=== PATIENT | male | born 1940 | race Caucasian/White ===

== ENCOUNTER 2020-08-19 22:21 | Inpatient (IN) | payer MEDICARE ==
[~2020-08-19] VITALS: Ht 182.9 cm; Wt 100.4 kg
[~2020-08-19 22:21] MED LIST: AVAP300T; HYDROCODONE/ACETAMIN; KEFL500C; MOBIC; PERC5TAB8; SIMV20TA2
[2020-08-20] MEDS ORDERED: ONDANSETRON 4MG/2ML VIAL IV ONE (00:15)
[2020-08-20] MEDS: MORPHINE 4 MG/ML 1ML VIAL/SYRINGE (J2270) IV PRN ×2 (00:18→00:53)
[2020-08-20 00:28] LABS: BASO % 0.4 % (0.0-1.0); EOS # 0.1 10^3/uL (0.0-0.5); HEMATOCRIT 39.5 % (42.0-52.0); HEMOGLOBIN 12.3 g/dl (13.5-17.5); LYMPH # 1.9 10^3/uL (1.5-5.0); LYMPH % 26.6 % (24.0-44.0); MEAN CORPUSCULAR HEMOGLOBIN 27.2 pg (27.0-33.0); MEAN CORPUSCULAR HGB CONC 31.1 g/dl (32.0-36.5); MEAN CORPUSCULAR VOLUME 87.2 fl (80.0-96.0); MONO # 0.7 10^3/uL (0.0-0.8); NEUTROPHILS # 4.3 10^3/uL (1.5-8.5); NEUTROPHILS % 61.9 % (36.0-66.0); PLATELET COUNT, AUTOMATED 170 10^3/uL (150-450); RED BLOOD COUNT 4.53 10^6/uL (4.30-6.10)
[2020-08-20 00:32] LABS: INR 1.89; PARTIAL THROMBOPLASTIN TIME 38.8 SECONDS (24.2-38.5); PROTHROMBIN TIME 22.1 SECONDS (12.5-14.3)
[2020-08-20 00:41] LABS: BLOOD UREA NITROGEN 27 MG/DL (7-18); CALCIUM LEVEL 9.1 MG/DL (8.8-10.2); CARBON DIOXIDE LEVEL 24 MEQ/L (21-32); CHLORIDE LEVEL 106 MEQ/L (98-107); CREATININE FOR GFR 1.08 MG/DL (0.70-1.30); GLOMERULAR FILTRATION RATE > 60.0 (>42); GLUCOSE, FASTING 106 MG/DL (70-100); POTASSIUM SERUM 4.4 MEQ/L (3.5-5.1); SODIUM LEVEL 140 MEQ/L (136-145)
[2020-08-20] MEDS ORDERED: SIMV20TA22 PO (00:50)
[2020-08-20] MEDS ORDERED: RAMI1CAP26 PO (00:50)
[2020-08-20] MEDS ORDERED: LEUP3.75 IM (00:50)
[2020-08-20] MEDS ORDERED: MAGN250T7 PO (00:50)
[2020-08-20] MEDS ORDERED: FISH1000 PO (00:50)
[2020-08-20] MEDS ORDERED: WARF-20 PO ×3 (00:50→07:26)
[2020-08-20] MEDS ORDERED: WARF4TAB51 PO (00:50)
[2020-08-20] MEDS ORDERED: LEVO100T5 PO (00:50)
[2020-08-20] MEDS ORDERED: METO1TAB87 PO (00:50)
[2020-08-20] MEDS ORDERED: MORPHINE 4 MG/ML 1ML VIAL/SYRINGE (J2270) IV PRN (04:15)
[2020-08-20] MEDS ORDERED: D31000TA2 PO (05:09)
[2020-08-20] MEDS ORDERED: WARF4TAB52 PO (05:09)
--- NOTE | 2020-08-20 06:07 | REPVR ---
PROCEDURE INFORMATION: Exam: CT Abdomen And Pelvis Without Contrast Exam date and time: 08/20/2020 4:12 AM Age: 79 years old Clinical indication: Other: Hematuria; Prior surgery; Surgery date: 6+ months; Surgery type: Prostate; Additional info: Hematuria, back pain TECHNIQUE: Imaging protocol: Computed tomography of the abdomen and pelvis without contrast. Radiation optimization: All CT scans at this facility use at least one of these dose optimization techniques: automated exposure control; mA and/or kV adjustment per patient size (includes targeted exams where dose is matched to clinical indication); or iterative reconstruction. COMPARISON: No relevant prior studies available. FINDINGS: Lungs: There are bilateral lower lobes chronic changes with mild volume loss. Liver: Normal. No mass. Gallbladder and bile ducts: Gallstones are seen. Pancreas: There is a 2.6 x 2.0 cm distal pancreatic tail lesion best seen on coronal image 59 and axial image 38. Spleen: Normal. No splenomegaly. Adrenal glands: Normal. No mass. Kidneys and ureters: There is 2.1 cm left lower renal pole cyst. There is bilateral renal caliceal and ureteral fullness, left more than right with perinephric stranding and edema. Stomach and bowel: Unremarkable. No obstruction. No mucosal thickening. Appendix: No evidence of appendicitis. Intraperitoneal space: Surgical clip seen in the inferior inguinal canals. Vasculature: There is severe aortic and iliac mural calcifications. Lymph nodes: There are bilateral inguinal shotty lymph nodes. There are shotty small retroperitoneal lymph nodes. There are shotty prominent lymph nodes in the lesser sac and carmela hepatitis the largest on axial image 49 measuring 2.8 x 1.8 centimetres. Urinary bladder: Agarwal catheter balloon is seen within the urinary bladder which contains large hyperdense material. Reproductive: Unremarkable as visualized. Bones/joints: There is diffuse lumbar spine facet arthrosis. There is T11-T12 disc degenerative changes. Multilevel anterior thoracic and lumbar spine osteophytes seen. There are bilateral SI joints degenerative and productive changes. Bilateral hip joints and symphysis pubis degenerative changes seen. Soft tissues: Unremarkable. IMPRESSION: 1. Agarwal catheter balloon within partially distended urinary bladder containing large hyperdense material possibly blood clot. Underlying neoplastic etiology cannot be excluded. 2. No nephroureterolithiasis seen however bilateral ureteral and caliceal fullness, left more than right, is noted with perinephric stranding. This could be secondary to back up from the urinary bladder however underlying pyelonephritis cannot be excluded. Correlate clinically. 3. 2.1 cm simple appearing left lower renal pole cyst. 4. 2.6 x 2.0 cm lesion in the distal pancreatic tail could represent a splenule however correlation with dedicated MRI is suggested. Comparison to old studies if available would be helpful. 5. Cholelithiasis. 6. Shotty bilateral inguinal, retroperitoneal, carmela hepatitis and peripancreatic lymph nodes could be reactive to an inflammatory or infectious process however follow-up is suggested. COMMENTS: Consistent with the [employer]'s Incidental Findings Committee white paper (J Am Ana Maria Radiol 2018): Any incidental renal lesion less than 1 cm or classified as too small to characterize, or any incidental cystic renal lesion characterized as simple-appearing, is likely benign. No follow-up imaging is recommended for these lesions per consensus recommendations based on imaging criteria. Electronically signed by: Rikki Ramirez On 08/20/2020 06:06:41 AM
--- NOTE | 2020-08-20 06:08 | IPNPDOC ---
Text Note Date of Service The patient was seen on 08/20/20. NOTE Time of service 606am is a 79 yr old w HTN, CVA, AFib, DLP, hypothyrodism, prostate CA that was managed w prostatectomy and class 1 obesity who presented w c/o hematuria and urinary retention; per we will c/w bladder irrigation. We will consult , hold warfarin, trend Hg, check a UA and iron studies. rest per 's H&P VS,Fishbone, I+O VS, Fishbone, I+O Laboratory Tests 08/19/20 23:54 Vital Signs Date Time Temp Pulse Resp B/P (MAP) Pulse Ox O2 Delivery O2 Flow Rate FiO2 08/20/20 05:48 98.1 56 20 158/72 (100) 98 Room Air I&O- Last 24 Hours up to 6 AM 08/20/20 06:00 Output Total 200 ml Balance -200 ml KRYSTLE KAUR MD August 20, 2020 06:08
[2020-08-20 06:12] VITALS: BP 149/68
--- NOTE | 2020-08-20 06:18 | HPEPDOC ---
[facility] Medical History & Physical Date of Admission August 20, 2020 Date of Service: August 20, 2020 Attending Physician: KRYSTLE KAUR MD History and Physical CHIEF COMPLAINT: Acute urinary retention, hematuria. HISTORY OF PRESENT ILLNESS: Patient is an 79-year-old male with a past medical history of prostate cancer(status post prostatectomy done in April 2008), radiation therapy(6 cycles completed) and Lupron therapy for 3 years completed last year, hypertension, atrial fibrillation, cerebrovascular accident 45 years ago, arthritis, hyperlipidemia since to the emergency department because of noticing blood in his urine since yesterday and some clots. This is a chronic phenomenon for the patient but he reported to the ED when he was unable to urinate for the last 24 hours and started feeling a dull lower abdominal ache.In the ED, a berrios catheter was inserted and residual urine was drained out alongwith some large clots.Pt's abdominal pain resolved almost immediately( most likely urinary retention froma blocked clot. Urology was consulted and Dr Duong's recommendation was to admit the pt for a continous bladder irrigation overnight with a followup with the urologist personnel quality assurance auditor for the day Dr HULL. PAST MEDICAL HISTORY: 1. Atrial fibrillation( April 2019) 2. 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 3. Hypertension 4. Prostate cancer(treated with surgery in 2008 followed by radiation followed by Lupron therapy) 5. Hypothyroidism 6. Hyperlipidemia 7. Osteoarthritis. PAST SURGICAL HISTORY: 1. Prostatectomy(April 2008). 2. Lipoma removal. 3. Elbow surgery. SOCIAL HISTORY: Marital status: . Resides in: Home Tobacco use: Former smoker- smoked for 20 yearsone pack per day. Quit 40 years ago ETOH: Occasional Illicit drug use: Denies IV drug use: Denies FAMILY HISTORY: Father: Unknown Mother: Unknown ALLERGIES: Please see below. REVIEW OF SYSTEMS: CONSTITUTIONAL: Denies fevers, chills, night sweats, unintentional weight loss. HEENT: Denies sore throat, runny nose, discharge from ears nose or throat.. CARDIOVASCULAR: Denies any chest pain, orthopnea, PND. RESPIRATORY: Denies shortness of breath, cough. GASTROINTESTINAL: Denies nausea, vomiting, diarrhea, constipation. GENITOURINARY: Reports seeing blood in the urine along with clots, no dysuria, no polyuria. SKIN: Multiple bruising sites seen at contact areas. MUSCULOSKELETAL: No joint pain/stiffness. NEUROLOGICAL: No paresthesias/numbness/tingling. PSYCHIATRIC: Known depression/anxiety.. HEMATOLOGIC/LYMPHATIC: Patient has extensive bleeding and bruising and multiple scabs and bleeding wounds all over his lower extremities. HOME MEDICATIONS: Please see below. PHYSICAL EXAMINATION: VITAL SIGNS: Temperature 98.1, pulse 56, respiratory rate 20, blood pressure 158/72, pulse oximetry 98 % on room air. GENERAL APPEARANCE: Patient looks nontoxic, not in any acute distress, well- built, well-nourished. HEENT: Atraumatic, normocephalic, no pallor, no scleral icterus PERRLA, EOMI, mucous membranes moist. CARDIOVASCULAR: S1 and S2 heard, normal rate regular rhythm, no murmurs appreciated. LUNGS: Clear to auscultation bilaterally, no wheezing/rhonchi heard. ABDOMEN: Obese abdomen, nondistended, nontender, no organomegaly, hyperactive bowel sounds. MUSCULOSKELETAL: No joint deformities, tenderness, swelling. EXTREMITIES: 2+ edema in bilateral lower extremities, good volume pulses, normal capillary permeability. NEUROLOGICAL: Good motor strength 5/5, sensations intact. Cranial nerves II-12 normal PSYCHIATRIC: Normal mood and affect. LABORATORY DATA: See below. IMAGING: Ct abdomen done on 08/19/2020: IMPRESSION: 1. Berrios catheter balloon within partially distended urinary bladder containing large hyperdense material possibly blood clot. Underlying neoplastic etiology cannot be excluded. 2. No nephroureterolithiasis seen however bilateral ureteral and caliceal fullness, left more than right, is noted with perinephric stranding. This could be secondary to back up from the urinary bladder however underlying pyelonephritis cannot be excluded. Correlate clinically. 3. 2.1 cm simple appearing left lower renal pole cyst. 4. 2.6 x 2.0 cm lesion in the distal pancreatic tail could represent a splenule however correlation with dedicated MRI is suggested. Comparison to old studies if available would be helpful. 5. Cholelithiasis. 6. Shotty bilateral inguinal, retroperitoneal, carmela hepatitis and peripancreatic lymph nodes could be reactive to an inflammatory or infectious process however follow-up is suggested MICROBIOLOGY: Please see below. ASSESSMENT AND PLAN: Patient is an 79-year-old male with a past medical history of prostate cancer(status post prostatectomy done in April 2008), radiation therapy(6 cycles completed) and Lupron therapy for 3 years completed last year, hypertension, atrial fibrillation, cerebrovascular accident 45 years ago, arthritis, hyperlipidemia since to the emergency department because of noticing blood in his urine since yesterday and some clots. This is a chronic phenomenon for the patient but he reported to the ED when he was unable to urinate for the last 24 hours and started feeling a dull lower abdominal ache.In the ED, a berrios catheter was inserted and residual urine was drained out alongwith some large clots.Pt's abdominal pain resolved almost immediately( most likely urinary retention froma blocked clot. Urology was consulted and Dr Duong's recommendation was to admit the pt for a continous bladder irrigation overnight with a followup with the urologist personnel quality assurance auditor for the day Dr HULL. 1. Lower abdominal pain/pressure secondary to Acute urinary retention secondary to obstruction/narrowing of the urethra due to a clot or radiation urethritis: -Foleys catheter was put in.- Lower abdominal pain/pressure resolved soon after. -P urine analysis with reflex culture was ordered. -A CTabdomen was also ordered. -The urine drained was red. -Bladder irrigation was started with normal saline. -Urology Dr. Duong was consulted-as per his recommendations patient will need to be admitted for continuous bladder irrigation. -Day team advised to call Dr. Hull from urology who is personnel quality assurance auditor today. 2. 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 -Patient's warfarin was held. INR is normal. -No blood in the stools. 3. Hypertension: -Continue with antihypertensive medications based on home regimen. 4. Hypothyroidism: -Continue giving levothyroxine. 5. Hyperlipidemia: -Continue statin 6. Anemia secondary to chronic blood loss in urine as a result of blood thinners versus radiation cystitis versus secondary to malignancy : -Follow and trend H and H's -Iron studies maybe needed to rule out iron deficiency anemia as an outpatient. DVT prophylaxis: Teds and sequentials. DISPOSITION:Pt was admitted overnight, observation status. Likely a discharge , to be followed outpatient. Vital Signs Vital Signs Date Time Temp Pulse Resp B/P (MAP) Pulse Ox O2 Delivery O2 Flow Rate FiO2 08/20/20 05:15 57 20 181/75 (110) 98 Room Air 08/19/20 22:22 97.1 Laboratory Data Labs 24H Laboratory Tests 2 08/19/20 23:54: Immature Granulocyte % (Auto) 0.1, Neutrophils (%) (Auto) 61.9, Lymphocytes (%) (Auto) 26.6, Monocytes (%) (Auto) 10.0H, Eosinophils (%) (Auto) 1.0, Basophils (%) (Auto) 0.4, Neutrophils # (Auto) 4.3, Lymphocytes # (Auto) 1.9, Monocytes # (Auto) 0.7, Eosinophils # (Auto) 0.1, Basophils # (Auto) 0.0, Nucleated Red Blood Cells % (auto) 0.0, Prothrombin Time 22.1H, Prothromb Time International Ratio 1.89, Activated Partial Thromboplast Time 38.8H, Anion Gap 10, Glomerular Filtration Rate > 60.0, Calcium Level 9.1 CBC/BMP Laboratory Tests 08/19/20 23:54 Microbiology Microbiology 08/20/20 Respiratory Virus Panel (PCR) ([facility]) - Final, Complete Home Medications Scheduled Cholecalciferol (Vitamin D3) (Vitamin D3) 1,000 Unit Tablet, 2,000 UNITS PO DAILY Levothyroxine Sodium (Levothyroxine Sodium) 100 Mcg Tablet, 100 MCG PO DAILY Magnesium Oxide (Magnesium) 250 Mg Tablet, 500 MG PO QPM TAKES AFTER DINNER Metoprolol Tartrate (Metoprolol Tartrate) 25 Mg Tablet, 25 MG PO QPM TAKES AFTER DINNER [place]-3 Fatty Acids/Fish Oil (Fish Oil 1,000 mg Capsule) 1 Each Capsule, 2,000 MG PO DAILY Ramipril (Ramipril) 10 Mg Capsule, 10 MG PO BID Simvastatin (Simvastatin) 20 Mg Tablet, 20 MG PO QPM TAKES AFTER DINNER Warfarin Sodium (Warfarin Sodium) 4 Mg Tablet, 4 MG PO QPM TAKES AFTER DINNER Warfarin Sodium (Warfarin Sodium) 1 Mg Tablet, 1 MG PO 3XW 5MG TOTAL ON SUN, TUES, THURS Warfarin Sodium (Warfarin Sodium) 4 Mg Tablet, 4 MG PO DAILY 4MG DAILY, 5MG TOTAL ON SUN, TUES, THURS Allergies Coded Allergies: No Known Allergies (Unverified , 08/19/20) A-FIB/CHADSVASC A-FIB History Current/History of A-Fib/PAF?: Yes Current PO Anticoag Therapy: Yes Age/Risk Factor Scoring CHADSVASC: CHADSVASC Response (Comments) Value Age Risk Factor Age 65-74 years old 1 Gender Risk Factor Male 0 Hx of CHF No 0 Hx of HTN Yes 1 Hx of Stroke/TIA/or VTE Yes 2 Hx of Diabetes No 0 Hx of Vascular Disease No 0 Total 4 Treatment Treatment ordered: Warfarin, Holding Warfarin Reason Anticoagulant not given: Current bleeding GME ATTESTATION GME ATTESTATION My faculty preceptor for this patient encounter was physically present during the encounter and was fully available. All aspects of the patient interview, examination, medical decision making process, and medical care plan development were reviewed and approved by the faculty preceptor. The faculty preceptor is aware and concurs with the plan as stated in the body of this note and will attest to such by his/her cosignature. ATTENDING NOTE Time of service 606am is a 79 yr old w HTN, CVA, AFib, DLP, hypothyrodism, prostate CA that was managed w prostatectomy and class 1 obesity who presented w c/o hematuria and urinary retention; per we will c/w bladder irrigation. We will consult , hold warfarin, trend Hg, check a UA and iron studies. rest per 's H&P Parish Sanchez MD August 20, 2020 05:51 KRYSTLE KAUR MD August 21, 2020 03:50
[2020-08-20 06:45] LABS: HEMATOCRIT 39.3 % (42.0-52.0); HEMOGLOBIN 12.3 g/dl (13.5-17.5); MEAN CORPUSCULAR HEMOGLOBIN 27.8 pg (27.0-33.0); MEAN CORPUSCULAR HGB CONC 31.3 g/dl (32.0-36.5); MEAN CORPUSCULAR VOLUME 88.7 fl (80.0-96.0); PLATELET COUNT, AUTOMATED 145 10^3/uL (150-450); RED BLOOD COUNT 4.43 10^6/uL (4.30-6.10)
[2020-08-20 07:17] LABS: PERCENT SATURATION 10.8 % (19.7-50.0)
[2020-08-20 07:20] LABS: ALBUMIN 3.5 GM/DL (3.2-5.2); BILIRUBIN,TOTAL 0.7 MG/DL (0.2-1.0); CALCIUM LEVEL 9.1 MG/DL (8.8-10.2); CREATININE FOR GFR 1.32 MG/DL (0.70-1.30); GLOMERULAR FILTRATION RATE 55.7 (>42); POTASSIUM SERUM 4.6 MEQ/L (3.5-5.1); TOTAL PROTEIN 7.2 GM/DL (6.4-8.2)
[2020-08-20] MEDS: ramipriL 5 MG CAP PO SCH ×2 (08:10→20:13)
[2020-08-20] MEDS: LEVOTHYROXINE 100MCG TABLET (0.1MG) PO SCH (08:10)
[2020-08-20] MEDS: VITAMIN D 1,000 INTERNATIONAL UNITS TABLET PO SCH (08:10)
[2020-08-20 09:15] LABS: FOLATE 19.1 NG/ML (>5.4)
[2020-08-20 14:00] VITALS: BP 125/57
--- NOTE | 2020-08-20 17:01 | SMCUROLCON ---
Urology Consultation General Date of Consultation 08/20/20 Reason For Consultation This patient is seen for Hematuria. History of Present Illness The patient is a 79-year-old male with a past medical history for prostate cancer and intermittent episodes of gross hematuria. The patient presented to the emergency room yesterday for complaint of inability to void. A Agarwal catheter was inserted and a large amount of urine was drained. He was then irrigated for numerous clots. Misael tells me that it is not unusual for him to have blood in the urine from time to time but this is the first time that he had clot retention. He began having bleeding 1-1/2-2 years ago about the same time that he started blood thinners. He has a past history of prostate cancer with a radical prostatectomy 10 years ago and external beam radiation therapy 4 years ago. He has no trouble urinating normally as good urinary control. Past Medical History Medical History Atrial fibrillation CVA Hypertension Prostate cancer 2009 Hypothyroidism Hyperlipidemia Osteoarthritis Surgical Hstory Radical prostatectomy 2008 Lipoma removal Elbow surgery Medications Current Medications Current Medications Medications (Trade) Dose Ordered Sig/Mira Route PRN Reason Start Time Stop Time Status Last Admin Dose Admin Levothyroxine Sodium (Synthroid) 100 mcg DAILY PO 08/20/20 09:00 08/20/20 08:10 Metoprolol Tartrate (Lopressor) 25 mg DAILY@1800 PO 08/20/20 18:00 Morphine Sulfate (Morphine Sulfate Inj) 4 mg Q30M PRN IV SEVERE PAIN (PS 8-10) 08/20/20 00:15 08/20/20 00:54 DC 08/20/20 00:53 Morphine Sulfate (Morphine Sulfate Inj) 4 mg Q30M PRN IV SEVERE PAIN (PS 8-10) 08/20/20 04:15 08/20/20 04:32 Ramipril (Altace) 10 mg BID PO 08/20/20 09:00 08/20/20 08:10 Simvastatin (Zocor) 20 mg DAILY@1800 PO 08/20/20 18:00 Vitamin D (Vitamin D) 2,000 units DAILY PO 08/20/20 09:00 08/20/20 08:10 Allergies Allergies: Coded Allergies: No Known Allergies (Unverified , 08/19/20) Review of Systems General: Reports: Normal Appetite; Denies: Fatigue, Malaise Constitutional: Denies: Fever, Chills, Sweats, Weakness, Malaise Eyes: Denies: Pain, Vision change ENT: Denies: Head Aches, Sore Throat, Epistaxis Skin: Denies: Rash, Lesions, Breakdown, Nail Changes Pulmonary: Denies: Dyspnea, Cough Cardiovascular: Denies Chest Pain, Denies Palpitations Gastrointestinal: Denies: Nausea, Vomiting, Abdominal Pain Genitourinary: Denies: Dysuria, Frequency, Incontinence, Hematuria Hematologic: Denies: Bruising, Bleeding Excessively Endocrine: Denies: Polydipsia, Polyphagia, Polyuria Musculoskeletal: Denies: Neck Pain, Back Pain Neurological: Denies: Weakness, Numbness, Incoordination, Change in Speech Psych: Reports: Mood Normal; Denies: Anxiety, Depression Physical Examination General Exam: Alert, No Acute Distress EYE EXAM: PERRLA, Conjunctiva & lids normal, EOMI; No: Sclera icteric ENT EXAM: Atraumatic, Mucous membr. moist/pink, Pharynx Normal Neck Exam: Supple; No: JVD, thyromegaly Chest Exam: Clear to auscultation, Normal air movement Heart Exam: Rate Normal, Regular Rhythm, Normal S1, Normal S2; No: Murmurs, Rubs Abdomen Exam: Normal Bowel Sounds, Soft; No: Tenderness, Hepatospenomegaly Male Exam Penis is uncircumcised with an indwelling three-way Agarwal catheter draining pink urine. Scrotum, testes, epididymides perineum are normal. Rectal examination was not performed at this time because of the patient's current Vital Signs/I&O Vital Signs Date Time Temp Pulse Resp B/P (MAP) Pulse Ox O2 Delivery O2 Flow Rate FiO2 08/20/20 14:00 97.8 51 18 125/57 (79) 97 Room Air I&O- Last 24 Hours up to 6 AM 08/20/20 06:00 Output Total 200 ml Balance -200 ml Laboratory Data 24H Labs Laboratory Tests 2 08/19/20 23:54: Immature Granulocyte % (Auto) 0.1, Neutrophils (%) (Auto) 61.9, Lymphocytes (%) (Auto) 26.6, Monocytes (%) (Auto) 10.0H, Eosinophils (%) (Auto) 1.0, Basophils (%) (Auto) 0.4, Neutrophils # (Auto) 4.3, Lymphocytes # (Auto) 1.9, Monocytes # (Auto) 0.7, Eosinophils # (Auto) 0.1, Basophils # (Auto) 0.0, Nucleated Red Blood Cells % (auto) 0.0, Prothrombin Time 22.1H, Prothromb Time International Ratio 1.89, Activated Partial Thromboplast Time 38.8H, Anion Gap 10, Glomerular Filtration Rate > 60.0, Calcium Level 9.1 08/20/20 06:33: Nucleated Red Blood Cells % (auto) 0.0, Anion Gap 7L, Glomerular Filtration Rate 55.7, Calcium Level 9.1, Iron Level 37L, Total Iron Binding Capacity 344, Transferrin % Saturation 10.8L, Ferritin 72, Total Bilirubin 0.7, Aspartate Amino Transf (AST/SGOT) 30, Alanine Aminotransferase (ALT/SGPT) 22, Alkaline Phosphatase 49, Total Protein 7.2, Albumin 3.5, Albumin/Globulin Ratio 0.9, Vitamin B12 Level 620, Folate 19.1 CBC/BMP Laboratory Tests 08/19/20 23:54 08/20/20 06:33 08/20/20 11:47 Microbiology Microbiology 08/20/20 Respiratory Virus Panel (PCR) ([facility]) - Final, Complete Assessment Gross hematuria of uncertain etiology. Possibly associated with his blood thinners Plan Plan to continue CBI with three-way catheter irrigation. This should clear in 24-48 hours At some point the patient will need outpatient cystoscopic evaluation for the recurrent hematuria Time Spent on Consult: Time Spent / Consult (Minutes): 55 CURTIS COBOS MD August 20, 2020 17:01
[2020-08-20] MEDS: SIMVASTATIN 20 MG TAB PO SCH (17:52)
[2020-08-20] MEDS: METOPROLOL TART 25 MG TABLET PO SCH (17:52)
[2020-08-20 22:00] VITALS: BP 133/58
[2020-08-21 06:00] VITALS: BP 133/65
[2020-08-21 06:04] LABS: HEMATOCRIT 37.8 % (42.0-52.0); HEMOGLOBIN 11.8 g/dl (13.5-17.5); MEAN CORPUSCULAR HEMOGLOBIN 27.6 pg (27.0-33.0); MEAN CORPUSCULAR HGB CONC 31.2 g/dl (32.0-36.5); MEAN CORPUSCULAR VOLUME 88.5 fl (80.0-96.0); PLATELET COUNT, AUTOMATED 141 10^3/uL (150-450); RED BLOOD COUNT 4.27 10^6/uL (4.30-6.10); WHITE BLOOD COUNT 7.8 10^3/uL (4.0-10.0)
[2020-08-21 06:34] LABS: ALBUMIN 3.1 GM/DL (3.2-5.2); ALT/SGPT 20 U/L (12-78); BILIRUBIN,TOTAL 0.8 MG/DL (0.2-1.0); BLOOD UREA NITROGEN 28 MG/DL (7-18); CALCIUM LEVEL 8.7 MG/DL (8.8-10.2); CARBON DIOXIDE LEVEL 26 MEQ/L (21-32); CHLORIDE LEVEL 107 MEQ/L (98-107); CREATININE FOR GFR 1.08 MG/DL (0.70-1.30); GLOMERULAR FILTRATION RATE > 60.0 (>42); GLUCOSE, FASTING 94 MG/DL (70-100); POTASSIUM SERUM 4.5 MEQ/L (3.5-5.1); SODIUM LEVEL 138 MEQ/L (136-145); TOTAL PROTEIN 7.2 GM/DL (6.4-8.2)
[2020-08-21] MEDS: LEVOTHYROXINE 100MCG TABLET (0.1MG) PO SCH (09:18)
[2020-08-21] MEDS: VITAMIN D 1,000 INTERNATIONAL UNITS TABLET PO SCH (09:18)
[2020-08-21] MEDS: ramipriL 5 MG CAP PO SCH ×2 (09:18→21:31)
[2020-08-21 14:00] VITALS: BP 172/65
--- NOTE | 2020-08-21 14:18 | IPNPDOC ---
Subjective Date Seen The patient was seen on 08/21/20. Subjective Chief Complaint/HPI continues to have hematuria, unchanged from yesterday, despite CBI Objective Physical Examination Eye Exam: Positive: PERRLA, Conjunctiva & lids normal, EOMI; Negative: Sclera icteric ENT Exam: Positive: Atraumatic, Mucous membr. moist/pink, Pharynx Normal Chest Exam: Positive: Clear to auscultation, Normal air movement Heart Exam: Positive: Rate Normal, Regular Rhythm, Normal S1, Normal S2; Negative: Murmurs, Rubs Abdomen Exam: Positive: Normal bowel sounds, Soft; Negative: Tenderness, Hepatospenomegaly Extremity Exam: Positive: Normal pulses; Negative: Clubbing, Cyanosis, Edema Neuro Exam: Positive: Normal Gait, Normal Speech, Cranial Nerves 3-12 NL, Reflexes 2+ Other physical findings hematuria Assessment /Plan Assessment # Acute urinary retention secondary to obstruction/narrowing of the urethra due to a clot or radiation urethritis # 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 INR is normal. -hgb stable # Hypertension: -Continue with antihypertensive medications based on home regimen. # Hypothyroidism: -Continue levothyroxine. # Hyperlipidemia: -Continue statin # PAF, currently NSR - holding warfarin - continue metoprolol DVT prophylaxis: SCDs DISPOSITION: change to inpatient continue with CBI until urine clears Plan/VTE VTE Prophylaxis Ordered?: No (hematuria) VS, I&O, 24H, Fishbone Vital Signs/I&O Vital Signs Date Time Temp Pulse Resp B/P (MAP) Pulse Ox O2 Delivery O2 Flow Rate FiO2 08/21/20 09:18 142/58 08/21/20 06:00 97.0 60 18 96 Room Air I&O- Last 24 Hours up to 6 AM 08/21/20 06:00 Intake Total 1340 ml Output Total 3650 ml Balance -2310 ml Laboratory Data 24H LABS Laboratory Tests 2 08/21/20 05:38: Nucleated Red Blood Cells % (auto) 0.0, Anion Gap 5L, Glomerular Filtration Rate > 60.0, Calcium Level 8.7L, Total Bilirubin 0.8, Aspartate Amino Transf (AST/SGOT) 29, Alanine Aminotransferase (ALT/SGPT) 20, Alkaline Phosphatase 45, Total Protein 7.2, Albumin 3.1L, Albumin/Globulin Ratio 0.8 CBC/BMP Laboratory Tests 08/20/20 18:07 08/21/20 05:38 Microbiology Microbiology 08/20/20 Respiratory Virus Panel (PCR) ([facility]) - Final, Complete IMMANUEL MOE MD August 21, 2020 14:16
[2020-08-21] MEDS: SIMVASTATIN 20 MG TAB PO SCH (18:27)
[2020-08-21] MEDS: METOPROLOL TART 25 MG TABLET PO SCH (18:29)
--- NOTE | 2020-08-21 19:23 | IPNPDOC ---
Subjective Review oF Systems Chief Complaint The patient is a 79-year-old male admitted with a reason for visit of Hematuria. General: Reports: Normal Appetite; Denies: Fatigue, Malaise Constitutional: Denies: Fever, Chills, Sweats, Weakness, Malaise Eyes: Denies: Pain, Vision change ENT: Denies: Head Aches, Sore Throat, Epistaxis Skin: Denies: Rash, Lesions, Breakdown, Nail Changes Pulmonary: Denies: Dyspnea, Cough Cardiovascular: Denies Chest Pain, Denies Palpitations Gastrointestinal: Denies: Nausea, Vomiting, Abdominal Pain Genitourinary: Denies: Dysuria, Frequency, Incontinence, Hematuria Hematologic: Denies: Bruising, Bleeding Excessively Endocrine: Denies: Polydipsia, Polyphagia, Polyuria Musculoskeletal: Denies: Neck Pain, Back Pain Objective Physical Examination General Exam: Alert, No Acute Distress Eye Exam: PERRLA, Conjunctiva & lids normal, EOMI; No: Sclera icteric ENT EXAM: Atraumatic, Mucous membr. moist/pink, Pharynx Normal Neck Exam: Supple; No: JVD, thyromegaly Chest Exam: Clear to auscultation, Normal air movement Heart Exam: Positive: Rate Normal, Regular Rhythm, Normal S1, Normal S2; Negative: Murmurs, Rubs ABDOMEN EXAM: Normal bowel sounds, Soft; No: Tenderness, Hepatospenomegaly Male Exam: Normal Genital Exam Vital Signs/I&O Vital Signs Date Time Temp Pulse Resp B/P (MAP) Pulse Ox O2 Delivery O2 Flow Rate FiO2 08/21/20 18:29 70 131/51 08/21/20 14:00 98.0 16 96 Room Air I&O- Last 24 Hours up to 6 AM 08/21/20 06:00 Intake Total 1340 ml Output Total 3650 ml Balance -2310 ml Laboratory Data Labs 24H Laboratory Tests 2 08/21/20 05:38: Nucleated Red Blood Cells % (auto) 0.0, Anion Gap 5L, Glomerular Filtration Rate > 60.0, Calcium Level 8.7L, Total Bilirubin 0.8, Aspartate Amino Transf (AST/SGOT) 29, Alanine Aminotransferase (ALT/SGPT) 20, Alkaline Phosphatase 45, Total Protein 7.2, Albumin 3.1L, Albumin/Globulin Ratio 0.8 CBC/BMP Laboratory Tests 08/21/20 05:38 Microbiology Microbiology 08/20/20 Respiratory Virus Panel (PCR) ([facility]) - Final, Complete Assessment/Plan Date Seen The patient was seen on 08/21/20. Plan/VTE VTE Prophylaxis Ordered?: No (hematuria) Plan The bladder was irrigated today for a large number of clots and the urine was sent clear. The CBI catheter was removed and the patient will be monitored for cementing for ability to void and recurrence of hematuria. He will need outpatient cystoscopy to evaluate the source of the bleeding and any further treatment that may reduce his chance of recurrence. CURTIS COBOS MD August 21, 2020 19:23
[2020-08-21 22:00] VITALS: BP 132/64
[2020-08-22] VITALS (7 sets, daily range): BP systolic 122–148; BP diastolic 59–70
[2020-08-22 06:17] LABS: HEMATOCRIT 36.1 % (42.0-52.0); HEMOGLOBIN 11.3 g/dl (13.5-17.5); MEAN CORPUSCULAR HEMOGLOBIN 27.2 pg (27.0-33.0); MEAN CORPUSCULAR HGB CONC 31.3 g/dl (32.0-36.5); PLATELET COUNT, AUTOMATED 138 10^3/uL (150-450); RED BLOOD COUNT 4.15 10^6/uL (4.30-6.10); WHITE BLOOD COUNT 7.6 10^3/uL (4.0-10.0)
[2020-08-22 06:51] LABS: ALBUMIN 3.1 GM/DL (3.2-5.2); ALT/SGPT 19 U/L (12-78); BILIRUBIN,TOTAL 1.1 MG/DL (0.2-1.0); BLOOD UREA NITROGEN 23 MG/DL (7-18); CALCIUM LEVEL 9.1 MG/DL (8.8-10.2); CARBON DIOXIDE LEVEL 27 MEQ/L (21-32); CHLORIDE LEVEL 105 MEQ/L (98-107); CREATININE FOR GFR 0.82 MG/DL (0.70-1.30); GLOMERULAR FILTRATION RATE > 60.0 (>42); GLUCOSE, FASTING 87 MG/DL (70-100); POTASSIUM SERUM 4.1 MEQ/L (3.5-5.1); SODIUM LEVEL 137 MEQ/L (136-145); TOTAL PROTEIN 6.8 GM/DL (6.4-8.2)
--- NOTE | 2020-08-22 07:48 | IPNPDOC ---
Subjective Review oF Systems Chief Complaint The patient is a 79-year-old male admitted with a reason for visit of Hematuria. Events since Last Encounter CBI catheter was removed last night. Since then, the patient has been voiding well. He states he still has a little red color in the urine, but no difficulties voiding. General: Reports: Normal Appetite; Denies: Fatigue, Malaise Constitutional: Denies: Fever, Chills, Sweats, Weakness, Malaise Eyes: Denies: Pain, Vision change ENT: Denies: Head Aches, Sore Throat, Epistaxis Skin: Denies: Rash, Lesions, Breakdown, Nail Changes Genitourinary: Denies: Dysuria, Frequency, Incontinence, Hematuria Objective Physical Examination General Exam: Alert, No Acute Distress Eye Exam: PERRLA, Conjunctiva & lids normal, EOMI; No: Sclera icteric ENT EXAM: Atraumatic, Mucous membr. moist/pink, Pharynx Normal Neck Exam: Supple; No: JVD, thyromegaly Chest Exam: Clear to auscultation, Normal air movement Heart Exam: Positive: Rate Normal, Regular Rhythm, Normal S1, Normal S2; Negative: Murmurs, Rubs ABDOMEN EXAM: Normal bowel sounds, Soft; No: Tenderness, Hepatospenomegaly Male Exam: Normal Genital Exam Vital Signs/I&O Vital Signs Date Time Temp Pulse Resp B/P (MAP) Pulse Ox O2 Delivery O2 Flow Rate FiO2 08/22/20 06:00 97.6 68 20 136/65 (88) 97 08/21/20 14:00 Room Air I&O- Last 24 Hours up to 6 AM 08/22/20 06:00 Intake Total 1660 ml Output Total 700 ml Balance 960 ml Laboratory Data Labs 24H Laboratory Tests 2 08/22/20 05:37: Nucleated Red Blood Cells % (auto) 0.0, Anion Gap 5L, Glomerular Filtration Rate > 60.0, Calcium Level 9.1, Total Bilirubin 1.1H, Aspartate Amino Transf (AST/SGOT) 21, Alanine Aminotransferase (ALT/SGPT) 19, Alkaline Phosphatase 46, Total Protein 6.8, Albumin 3.1L, Albumin/Globulin Ratio 0.8 CBC/BMP Laboratory Tests 08/22/20 05:37 Microbiology Microbiology 08/20/20 Respiratory Virus Panel (PCR) ([facility]) - Final, Complete Assessment/Plan Date Seen The patient was seen on 08/22/20. Patient Summary Hematuria has improved although still present over a small amount. Plan/VTE VTE Prophylaxis Ordered?: No (hematuria) Plan Because the patient still has a very small amount of bleeding, he is stable enough for discharge. I offered to do cystoscopy later this afternoon, but he states that he is doing well enough now. He has had this amount of blood in the urine before and it continued to resolve in the past. He therefore would like to be discharged home today and agreed to an office cystoscopy after discharge. He therefore is cleared urologically for discharge to follow-up in the office for cystoscopy at a later date. CURTIS COBOS MD August 22, 2020 07:48
[2020-08-22] MEDS: LEVOTHYROXINE 100MCG TABLET (0.1MG) PO SCH (09:32)
[2020-08-22] MEDS: VITAMIN D 1,000 INTERNATIONAL UNITS TABLET PO SCH (09:32)
[2020-08-22] MEDS: ramipriL 5 MG CAP PO SCH ×2 (09:33→21:30)
--- NOTE | 2020-08-22 10:13 | IPNPDOC ---
Subjective Review oF Systems Chief Complaint The patient is a 79-year-old male admitted with a reason for visit of Hematuria. Objective Physical Examination General Exam: Alert, No Acute Distress Eye Exam: PERRLA, Conjunctiva & lids normal, EOMI; No: Sclera icteric ENT EXAM: Atraumatic, Mucous membr. moist/pink, Pharynx Normal Neck Exam: Supple; No: JVD, thyromegaly Chest Exam: Clear to auscultation, Normal air movement Heart Exam: Positive: Rate Normal, Regular Rhythm, Normal S1, Normal S2; Negative: Murmurs, Rubs ABDOMEN EXAM: Normal bowel sounds, Soft; No: Tenderness, Hepatospenomegaly Male Exam: Normal Genital Exam Vital Signs/I&O Vital Signs Date Time Temp Pulse Resp B/P (MAP) Pulse Ox O2 Delivery O2 Flow Rate FiO2 08/22/20 09:33 128/82 08/22/20 06:00 97.6 68 20 97 08/21/20 14:00 Room Air I&O- Last 24 Hours up to 6 AM 08/22/20 06:00 Intake Total 1660 ml Output Total 700 ml Balance 960 ml Laboratory Data Labs 24H Laboratory Tests 2 08/22/20 05:37: Nucleated Red Blood Cells % (auto) 0.0, Anion Gap 5L, Glomerular Filtration Rate > 60.0, Calcium Level 9.1, Total Bilirubin 1.1H, Aspartate Amino Transf (AST/SGOT) 21, Alanine Aminotransferase (ALT/SGPT) 19, Alkaline Phosphatase 46, Total Protein 6.8, Albumin 3.1L, Albumin/Globulin Ratio 0.8 CBC/BMP Laboratory Tests 08/22/20 05:37 Microbiology Microbiology 08/20/20 Respiratory Virus Panel (PCR) ([facility]) - Final, Complete Assessment/Plan Date Seen The patient was seen on 08/22/20. Plan/VTE VTE Prophylaxis Ordered?: No (hematuria) Plan After talking with the patient's and daughter, the decision was made to perform a cystoscopy this evening for hematuria, clot retention and fulguration. The patient will then be observed overnight and hopefully we will be able to be discharged home in the morning. CURTIS COBOS MD August 22, 2020 10:13
[2020-08-22] MEDS: NS 1,000 ML IV SCH (10:28)
--- NOTE | 2020-08-22 12:29 | IPNPDOC ---
Subjective Date Seen The patient was seen on 08/22/20. Subjective Chief Complaint/HPI CBI was discontinued patient saw urine is pink in color no longer bright red. He denies having any pain with urination. He is not having any trouble urinating. Objective Physical Examination Eye Exam: Positive: PERRLA; Negative: Sclera icteric ENT Exam: Positive: Mucous membr. 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 -Urine analysis with reflex culture ordered, but not done will reorder -Patient's warfarin was held. INR is normal. -hgb stable # Hypertension: -Continue with antihypertensive medications based on home regimen. # Hypothyroidism: -Continue levothyroxine. # Hyperlipidemia: -Continue statin # PAF, currently NSR - holding warfarin - continue metoprolol DVT prophylaxis: SCDs DISPOSITION: Home in a.m. following cystoscopy later this evening Plan/VTE VTE Prophylaxis Ordered?: No (hematuria) VS, I&O, 24H, [facility] Vital Signs/I&O Vital Signs Date Time Temp Pulse Resp B/P (MAP) Pulse Ox O2 Delivery O2 Flow Rate FiO2 08/22/20 09:33 128/82 08/22/20 06:00 97.6 68 20 97 08/21/20 14:00 Room Air I&O- Last 24 Hours up to 6 AM 08/22/20 06:00 Intake Total 1660 ml Output Total 700 ml Balance 960 ml Laboratory Data 24H LABS Laboratory Tests 2 08/22/20 05:37: Nucleated Red Blood Cells % (auto) 0.0, Anion Gap 5L, Glomerular Filtration Rate > 60.0, Calcium Level 9.1, Total Bilirubin 1.1H, Aspartate Amino Transf (AST/SGOT) 21, Alanine Aminotransferase (ALT/SGPT) 19, Alkaline Phosphatase 46, Total Protein 6.8, Albumin 3.1L, Albumin/Globulin Ratio 0.8 CBC/BMP Laboratory Tests 08/22/20 05:37 Microbiology Microbiology 08/20/20 Respiratory Virus Panel (PCR) ([facility]) - Final, Complete IMMANUEL MOE MD August 22, 2020 12:29
[2020-08-22] MEDS ORDERED: LIDOCAINE 2% 5ML JELLY UROJET As Ordered ONE (17:07)
[2020-08-22] MEDS ORDERED: ePHEDrine SULFATE 25 MG/5 ML(5MG/ML) SYRINGE As Ordered ONE (17:51)
[2020-08-22] MEDS ORDERED: SEVOFLURANE INHAL SOLN 250 ML BTL As Ordered ONE (17:51)
[2020-08-22] MEDS ORDERED: dexameTHASONE 4 MG/ML 1ML VIAL (J1100 PER 1MG) As Ordered ONE (17:51)
[2020-08-22] MEDS ORDERED: ONDANSETRON 4MG/2ML VIAL As Ordered ONE (17:51)
[2020-08-22] MEDS ORDERED: MIDAZOLAM INJ 2MG/2ML VIAL (J2250 PER 1MG) As Ordered ONE (17:51)
[2020-08-22] MEDS ORDERED: LIDOCAINE 2% 100MG/5ML SDV (FOR ANES.) As Ordered ONE (17:51)
[2020-08-22] MEDS ORDERED: METOCLOPRAMIDE INJ 10MG/2ML VIAL (J2765 PER 1) As Ordered ONE (17:51)
[2020-08-22] MEDS ORDERED: fentaNYL 100 MCG/2 ML INJECTION (J3010) As Ordered ONE (17:51)
[2020-08-22] MEDS ORDERED: propofoL 200 MG/20 ML VIAL As Ordered ONE (17:51)
[2020-08-22] MEDS ORDERED: DESFLURANE 240 ML INHALANT As Ordered ONE (17:51)
[2020-08-22] MEDS: METOPROLOL TART 25 MG TABLET PO SCH (18:00)
--- NOTE | 2020-08-22 18:28 | ROOPDOC ---
[facility] Report Of Operation Report of Operation DATE OF PROCEDURE: 08/22/20 PREPROCEDURE DIAGNOSES: Clot retention POSTPROCEDURE DIAGNOSES: Same plus bladder varices PROCEDURE: Cystoscopy, evacuation of clots, fulguration of varices SURGEON: Sriram Hull MD SENIOR BUSINESS ANALYST: None ANESTHESIA: Gen. ESTIMATED BLOOD LOSS: Approximately 5 mL. 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 A #22 Swedish cystoscope was then inserted into the meatus after anesthetizing the urethra with lidocaine gel to 2%. The scope was advanced under direct vision of the 30 lens to the bladder. The bladder neck area is found to have numerous varices present. In the bladder there were 2 small clots that were evacuated. The bladder mucosa was then examined and there were no active varices bleeding except at the bladder neck area. These were then fulgurated with the Bugbee cautery. When the area was cauterized as well as possible, the bladder was drained, cystoscope was removed and the patient was awakened and sent to recovery room in stable condition having tolerated the procedure well. SRIRAM HULL MD August 22, 2020 18:28
[2020-08-22] MEDS ORDERED: HYDROMORPHONE HCL 0.5 MG/ 0.5 ML SYRINGE (J1170 PER 1) IV PRN (18:40)
[2020-08-22] MEDS ORDERED: LR 1,000 ML IV SCH ×2 (18:40→18:55)
[2020-08-22] MEDS ORDERED: ONDANSETRON 4MG/2ML VIAL IV PRN (18:40)
[2020-08-22] MEDS ORDERED: fentaNYL 100 MCG/2 ML INJECTION (J3010) IV PRN (18:40)
[2020-08-22] MEDS ORDERED: oxyCODONE 5MG TAB PO PRN (18:40)
[2020-08-22] MEDS: SIMVASTATIN 20 MG TAB PO SCH (19:18)
[2020-08-23 06:00] VITALS: BP 132/63
[2020-08-23 06:50] LABS: HEMATOCRIT 40.4 % (42.0-52.0); HEMOGLOBIN 12.7 g/dl (13.5-17.5); MEAN CORPUSCULAR HEMOGLOBIN 27.6 pg (27.0-33.0); MEAN CORPUSCULAR HGB CONC 31.4 g/dl (32.0-36.5); MEAN CORPUSCULAR VOLUME 87.8 fl (80.0-96.0); PLATELET COUNT, AUTOMATED 160 10^3/uL (150-450)
[2020-08-23 07:14] LABS: BLOOD UREA NITROGEN 24 MG/DL (7-18); CALCIUM LEVEL 9.1 MG/DL (8.8-10.2); CARBON DIOXIDE LEVEL 26 MEQ/L (21-32); CHLORIDE LEVEL 103 MEQ/L (98-107); CREATININE FOR GFR 1.11 MG/DL (0.70-1.30); GLOMERULAR FILTRATION RATE > 60.0 (>42); GLUCOSE, FASTING 122 MG/DL (70-100); POTASSIUM SERUM 4.2 MEQ/L (3.5-5.1); SODIUM LEVEL 136 MEQ/L (136-145)
[2020-08-23] MEDS: VITAMIN D 1,000 INTERNATIONAL UNITS TABLET PO SCH (08:34)
[2020-08-23 08:35] VITALS: BP 132/63
[2020-08-23] MEDS: ramipriL 5 MG CAP PO SCH (08:35)
[2020-08-23] MEDS: LEVOTHYROXINE 100MCG TABLET (0.1MG) PO SCH (08:35)
[2020-08-23] MEDS: NS 1,000 ML IV SCH (10:15)
--- NOTE | 2020-08-23 16:55 | ECGEPIP ---
[facility] Test Date: 2020-08-22 Pat Name: TRAVIS LEMONS Department: Room: [place] [address] Gender: Male Former Hand: COTY : 1940 Requested By: MARISOL SERVIN Order Number: [id number] Reading MD: Judd Schrader Measurements Intervals [place] Rate: 52 P: NC: QRS: 26 QRSD: 76 T: 154 QT: 504 QTc: 468 Interpretive Statements Atrial fibrillation with slow ventricular response Minimal voltage criteria for LVH ST & Marked T wave abnormality, consider anterolateral ischemia PROLONGED QT INTERVAL Comparison tracing not on file Electronically Signed on 08-23-2020 16:55:25 EDT by Judd Schrader
--- NOTE | 2020-08-23 18:13 | DSES ---
DISCHARGE SUMMARY DATE OF ADMISSION: 08/21/2020 DATE OF DISCHARGE: 08/23/2020 DISCHARGE DIAGNOSES: 1. 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 2. 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 3. Hypertension. 4. Hypothyroidism. 5. Hyperlipidemia. 6. Paroxysmal atrial fibrillation. 7. Chronic anticoagulation with warfarin. CONSULTANTS DURING THIS HOSPITALIZATION: Dr. Hull of urology. PROCEDURES PERFORMED DURING THIS HOSPITALIZATION: Cystoscopy with evacuation of clots and fulguration of varices. Please reference full operative report for details. DISCHARGE DISPOSITION: The patient is discharged home. CONDITION ON DISCHARGE: Stable. DISCHARGE INSTRUCTIONS: The patient is instructed to follow-up with his PCP in approximately one week, as well as Dr. Hull in approximately two to three weeks time. The patient is asked to resume his Coumadin tonight. PERTINENT LABORATORY DATA: White count 8, hemoglobin 12.7, hematocrit 40, platelet count 160,000. Sodium 136, potassium 4.2, chloride 102, bicarb 26, BUN 24, creatinine 1.1, glucose 121, calcium 9.1, iron 37, TIBC 44, ferritin 72, transferrin 10.8. Vitamin B12 of 620 and folate of 19.1. PT was 22.1, INR was 1.89, PTT was 38.8 on admission. COVID swab was negative. IMAGING DATA: CT of the abdomen and pelvis please reference full report for details, but this showed that the Agarwal catheter balloon within the proximally distended urinary bladder containing large hypodense material possibly bloody clot; underlying neoplastic etiology cannot be excluded. No nephrolithiasis seen; however, bilateral urethral and calyceal fullness, left more than right is noted with perinephric stranding and this could be secondary to backup from the urinary bladder; however, underlying pyelonephritis cannot be excluded, correlate clinically. A 2.1 cm simple appearing left lower renal pole cyst, 2.6 x 2 lesion in the distal pancreatic tail could recommend a splenule; however, correlation with dedicated MRI suggested. Comparison with old studies available would be helpful. Cholelithiasis. Shotty bilateral inguinal, retroperitoneal, carmela hepatis, and peripancreatic lymph nodes that could be reactive to an inflammatory or infectious problem; however, follow-up is suggested. DISCHARGE PHYSICAL EXAMINATION: VITAL SIGNS: At the time of discharge, the patient's temperature is 98.4, pulse of 67 and regular, respirations 20, blood pressure 132/63, O2 sat 96% on room air. The patient is afebrile. GENERAL: The patient is alert and oriented x3. He is an elderly gentleman who appears his stated age. SKIN: Intact and warm to touch. HEENT: Head is atraumatic, normocephalic. Pupils symmetric and reactive to light. Oropharynx is clear. NECK: Supple. LUNGS: Sounds present without rales or rhonchi. HEART: S1, S2. No murmurs or gallops. ABDOMEN: Soft, nontender, and nondistended. The patient has no suprapubic tenderness. No costophrenic angle tenderness. EXTREMITIES: Without any significant cyanosis, clubbing, or edema. HOSPITAL COURSE: Mr. Gold is a 79-year-old gentleman who had presented to the hospital with complaint of inability to urinate and passing blood. He is chronically on Coumadin. He has a history of prostate cancer and has had radiation. The patient had a Agarwal catheter placed, admitted to the hospital service, and started on continuous bladder irrigation. Urology was consulted. The patient's warfarin was held. Clinically the patient's hematuria resolved with TBI and this was discontinued. The patient was taken for cystoscopy and found to have bladder wall varices, which were fulgurated and the patient had clots evacuated. He was seen the following day by urology and was deemed stable to be discharged home. DISCHARGE MEDICATIONS: 1. Cholecalciferol 2000 units daily. 2. Levothyroxine 100 mcg daily. 3. Mag-Ox 500 mg in the p.m. 4. Metoprolol tartrate 25 mg in the p.m. 5. Fish oil 2000 mg daily. 6. Ramipril 10 mg twice a day. 7. Simvastatin 20 mg at bedtime. 8. Warfarin 4 mg in the p.m. and then 1 mg three times a week and then an additional 4 mg daily. Total of 30 minutes spent completing all discharge paperwork.
== END 2020-08-23 11:49 | disposition home or self-care (01) | DRG 988 ==
LOC: M ED 22:21 → M ED INP 08-20 04:42 → INTOOBSV 08-20 04:42 → ENRESERV 08-20 05:44 → M MSPAV 08-20 06:12 → OBSVTOIN 08-21 13:49
PROVIDERS: ADMIT Internal Medicine; ATTEND Internal Medicine
PROC: 0TCB8ZZ Extirpation of Matter from Bladder, Via Natural or Artificial Opening Endoscopic (ICD-10-PCS; 2020-08-22)
PROC: 0T5B8ZZ Destruction of Bladder, Via Natural or Artificial Opening Endoscopic (ICD-10-PCS; principal; 2020-08-22 16:30)
DX: D68.32 Hemorrhagic disorder due to extrinsic circulating anticoagulants (principal); I69.351 Hemiplegia and hemiparesis following cerebral infarction affecting right dominant side; N36.8 Other specified disorders of urethra; R33.8 Other retention of urine; R31.9 Hematuria, unspecified; I69.341 Monoplegia of lower limb following cerebral infarction affecting right dominant side; Z79.01 Long term (current) use of anticoagulants; E03.9 Hypothyroidism, unspecified; I10 Essential (primary) hypertension; E78.5 Hyperlipidemia, unspecified; N34.2 Other urethritis; Z92.3 Personal history of irradiation; Z79.899 Other long term (current) drug therapy; M19.90 Unspecified osteoarthritis, unspecified site; Z85.46 Personal history of malignant neoplasm of prostate; Z87.891 Personal history of nicotine dependence; D50.0 Iron deficiency anemia secondary to blood loss (chronic)

== ENCOUNTER 2022-03-09 12:00 | Day surgery (SDC) | payer MEDICARE, BC ==
[~2022-03-09] VITALS: Ht 182.9 cm; Wt 99.3 kg
[~2022-03-09 12:00] MED LIST changes: +ACETYLCHOLINE OPHTH SOLN 1% 2ML (MIOCHOL-E) As Ordered ONE; +BSS IRRIG/VANCO(10MG)/TOBRA(5MG)/EPINEPH(1:1000-0.5CC)500ML BAG-ORONLY IR ONE; +CEFUROXIME 1MG/0.1ML INTRACAMERAL INJ As Ordered ONE; +FISH1000 PO; +FURO20TA2; +IRON27TA2 PO; +LEUP3.752 IM; +LEVO100T5 PO; +LIDOCAINE 1% 1ML PF SYRINGE (OR EYE CASES) As Ordered ONE; +LIDOCAINE 3.5 % 1ML OPHTH TOPICAL GEL OU ONE; +MAGN250T7 PO; +METO1TAB87 PO; +MIDAZOLAM INJ 2MG/2ML VIAL As Ordered ONE; +OFLOXACIN 0.3 % (OCUFLOX) OPTH SOL 5ML OS ONE; +PHENYLEPHRINE 10% OPHTH SOL 5ML OS PRN; +RAMI1CAP26 PO; +SIMV20TA22 PO; +SOLI10TA; +VITA100093 PO; +WARF-20 PO; +WARF4TAB51 PO; +WARF4TAB52 PO
[2022-03-09] MEDS: PHENYLEPHRINE 2.5% OPHTH SOL 2ML OS SCH ×3 (13:18→13:33)
[2022-03-09] MEDS: CYCLOPENTOLATE 1% OPHTH SOLN 2ML BTL OS SCH ×3 (13:18→13:33)
[2022-03-09] MEDS: TROPICAMIDE 1% OPHTH SOLN 15ML OS SCH ×3 (13:18→13:33)
[2022-03-09 14:15] VITALS: BP 107/65
== END 2022-03-09 14:45 | disposition home or self-care (01) ==
LOC: M SDC 12:00
PROVIDERS: ATTEND Ophthalmology
DX: H25.12 Age-related nuclear cataract, left eye (principal); I48.91 Unspecified atrial fibrillation; I10 Essential (primary) hypertension; E78.2 Mixed hyperlipidemia; E03.9 Hypothyroidism, unspecified; D64.9 Anemia, unspecified; Z86.73 Personal history of transient ischemic attack (TIA), and cerebral infarction without residual deficits; Z85.46 Personal history of malignant neoplasm of prostate; Z92.21 Personal history of antineoplastic chemotherapy; Z79.01 Long term (current) use of anticoagulants; Z79.899 Other long term (current) drug therapy
CPT/HCPCS: 66984; J0697; J2250; V2632

== ENCOUNTER 2022-03-16 08:13 | Day surgery (SDC) | payer MEDICARE, BC ==
[~2022-03-16] VITALS: Ht 182.9 cm; Wt 100.2 kg
[~2022-03-16 08:13] MED LIST changes: -ACETYLCHOLINE OPHTH SOLN 1% 2ML (MIOCHOL-E) As Ordered ONE; -MIDAZOLAM INJ 2MG/2ML VIAL As Ordered ONE; +OFLOXACIN 0.3 % (OCUFLOX) OPTH SOL 5ML OD ONE; -OFLOXACIN 0.3 % (OCUFLOX) OPTH SOL 5ML OS ONE; +PHENYLEPHRINE 10% OPHTH SOL 5ML OD PRN; -PHENYLEPHRINE 10% OPHTH SOL 5ML OS PRN
[2022-03-16] MEDS: CYCLOPENTOLATE 1% OPHTH SOLN 2ML BTL OD SCH ×2 (08:52→09:09)
[2022-03-16] MEDS: TROPICAMIDE 1% OPHTH SOLN 15ML OD SCH ×2 (08:52→09:09)
[2022-03-16] MEDS: PHENYLEPHRINE 2.5% OPHTH SOL 2ML OD SCH ×2 (08:52→09:09)
[2022-03-16] MEDS ORDERED: MIDAZOLAM INJ 2MG/2ML VIAL As Ordered ONE (09:40)
[2022-03-16 10:01] VITALS: BP 112/58
== END 2022-03-16 10:19 | disposition home or self-care (01) ==
LOC: M SDC 08:13
PROVIDERS: ATTEND Ophthalmology
DX: H25.11 Age-related nuclear cataract, right eye (principal); I10 Essential (primary) hypertension; E78.5 Hyperlipidemia, unspecified; E03.9 Hypothyroidism, unspecified; D64.9 Anemia, unspecified; Z86.73 Personal history of transient ischemic attack (TIA), and cerebral infarction without residual deficits; Z85.46 Personal history of malignant neoplasm of prostate; Z92.21 Personal history of antineoplastic chemotherapy; Z79.01 Long term (current) use of anticoagulants; Z79.899 Other long term (current) drug therapy
CPT/HCPCS: 66984; J0697; J2250; V2632

== ENCOUNTER 2023-11-17 23:10 | Observation (INO) | payer MEDICARE ==
[~2023-11-17] VITALS: Ht 182.9 cm; Wt 95.5 kg
[~2023-11-17 23:10] MED LIST changes: -BSS IRRIG/VANCO(10MG)/TOBRA(5MG)/EPINEPH(1:1000-0.5CC)500ML BAG-ORONLY IR ONE; -CEFUROXIME 1MG/0.1ML INTRACAMERAL INJ As Ordered ONE; -LIDOCAINE 1% 1ML PF SYRINGE (OR EYE CASES) As Ordered ONE; -LIDOCAINE 3.5 % 1ML OPHTH TOPICAL GEL OU ONE; -OFLOXACIN 0.3 % (OCUFLOX) OPTH SOL 5ML OD ONE; -PHENYLEPHRINE 10% OPHTH SOL 5ML OD PRN; +RAMI10CA64 PO; -RAMI1CAP26 PO
[2023-11-18 00:38] LABS: BASO % 0.3 % (0.0-1.0); EOS % 0.3 % (0.0-3.0); HEMATOCRIT 36.7 % (42.0-52.0); HEMOGLOBIN 11.6 g/dl (13.5-17.5); LYMPH # 0.8 10^3/uL (1.5-5.0); LYMPH % 7.1 % (24.0-44.0); MEAN CORPUSCULAR HEMOGLOBIN 27.8 pg (27.0-33.0); MEAN CORPUSCULAR HGB CONC 31.6 g/dl (32.0-36.5); MONO # 0.9 10^3/uL (0.0-0.8); MONO % 8.5 % (2.0-8.0); NEUTROPHILS % 82.3 % (36.0-66.0); PLATELET COUNT, AUTOMATED 178 10^3/uL (150-450); RED BLOOD COUNT 4.17 10^6/uL (4.30-6.10); WHITE BLOOD COUNT 10.9 10^3/uL (4.0-10.0)
[2023-11-18 00:42] LABS: INR 3.26; PARTIAL THROMBOPLASTIN TIME 45.6 SECONDS (24.8-34.2)
[2023-11-18 00:52] LABS: CK-MB VALUE MASS 2.1 NG/ML (<3.6); ETHYL ALCOHOL (ETHANOL) 0.006 % (0.000-0.010)
[2023-11-18 00:53] LABS: ALBUMIN 3.2 G/DL (3.2-5.2); CALCIUM LEVEL 8.9 MG/DL (8.3-10.6); CREATININE FOR GFR 1.28 MG/DL (0.70-1.30); GLOMERULAR FILTRATION RATE 57.3 (>35); POTASSIUM SERUM 4.4 MMOL/L (3.5-5.1); TOTAL PROTEIN 7.2 G/DL (5.7-8.2)
[2023-11-18 00:56] LABS: MB/CK RELATIVE INDEX 4.2 (< OR =4); THYROID STIMULATING HORMONE 3.11 uIU/ML (0.55-4.78)
[2023-11-18 03:47] LABS: CK-MB VALUE MASS 2.6 NG/ML (<3.6)
[2023-11-18 03:48] LABS: MB/CK RELATIVE INDEX 5.09 (< OR =4)
[2023-11-18 05:12] VITALS: BP 147/66; TEMP 97.7; O2SAT 100
[2023-11-18] MEDS: LEVOTHYROXINE 100MCG TABLET (0.1MG) PO SCH (06:00)
[2023-11-18] MEDS ORDERED: FURO20TA2 PO (06:31)
[2023-11-18] MEDS ORDERED: WARF-58 PO (06:31)
[2023-11-18] MEDS ORDERED: FERR325T18 PO (06:31)
[2023-11-18] MEDS ORDERED: BIOT1000 PO (06:31)
[2023-11-18] MEDS ORDERED: WARF-20 PO (06:31)
[2023-11-18] MEDS ORDERED: VESI10TA2 PO (06:31)
[2023-11-18] MEDS ORDERED: HOME MED LIST COMPLETE! XX SCH (06:35)
[2023-11-18 06:40] LABS: INR 3.19; PROTHROMBIN TIME 31.5 SECONDS (12.5-14.5)
[2023-11-18 08:00] VITALS: BP 137/64; TEMP 98.1; O2SAT 98
[2023-11-18] MEDS: VITAMIN D 1,000 INTERNATIONAL UNITS TABLET PO SCH (08:04)
[2023-11-18] MEDS: FUROSEMIDE 20 MG TAB PO SCH (08:04)
[2023-11-18] MEDS: ACETAMINOPHEN TAB 650MG DOSE (2X325MG) PO PRN (08:04)
[2023-11-18] MEDS: FERROUS SULFATE 325MG TAB PO SCH (08:04)
[2023-11-18] MEDS: ramipriL 5 MG CAP PO SCH (09:50)
[2023-11-18] MEDS: PERCOCET 5MG/325MG TAB PO ONE (09:51)
[2023-11-18 12:00] VITALS: BP 132/51; TEMP 98.2; O2SAT 95
[2023-11-18 16:00] VITALS: BP 116/42; TEMP 98.6; O2SAT 98
[2023-11-18] MEDS ORDERED: WARFARIN SOD 3MG TAB PO SCH (17:00)
[2023-11-18] MEDS: PERCOCET 5MG/325MG TAB PO PRN (17:55)
[2023-11-18 20:00] VITALS: BP 131/56; TEMP 98.9; O2SAT 98
[2023-11-18] MEDS: SIMVASTATIN 20 MG TAB PO SCH (20:18)
[2023-11-18 20:20] VITALS: BP 131/56
[2023-11-19] VITALS: BP 131/51; TEMP 99; O2SAT 95
[2023-11-19 03:27] VITALS: BP 137/52; TEMP 98.6; O2SAT 95
[2023-11-19 08:00] VITALS: BP 144/67; TEMP 97.9; O2SAT 96
[2023-11-20] MEDS ORDERED: WARFARIN SOD 4MG TAB PO SCH (17:00)
== END 2023-11-19 09:35 | disposition short-term general hospital (02) ==
LOC: EDBD 23:10 → M ED 23:10 → M ED INP 23:11 → M MSPAV 11-18 05:33
PROVIDERS: ADMIT Preventive Medicine Undersea and Hyperbaric Medicine; ATTEND Internal Medicine
DX: R55 Syncope and collapse (principal); I11.0 Hypertensive heart disease with heart failure; I50.20 Unspecified systolic (congestive) heart failure; R00.1 Bradycardia, unspecified; I48.92 Unspecified atrial flutter; I49.5 Sick sinus syndrome; E03.9 Hypothyroidism, unspecified; Z99.89 Dependence on other enabling machines and devices; S80.811A Abrasion, right lower leg, initial encounter; W18.30XA Fall on same level, unspecified, initial encounter; Y92.002 Bathroom of unspecified non-institutional (private) residence as the place of occurrence of the external cause; Y93.9 Activity, unspecified; Y99.9 Unspecified external cause status; M25.561 Pain in right knee; M25.562 Pain in left knee; M25.461 Effusion, right knee; M25.462 Effusion, left knee; R79.1 Abnormal coagulation profile; R29.6 Repeated falls; R60.0 Localized edema; E78.5 Hyperlipidemia, unspecified; R32 Unspecified urinary incontinence; D50.9 Iron deficiency anemia, unspecified; Z79.899 Other long term (current) drug therapy; Z79.890 Hormone replacement therapy; Z79.01 Long term (current) use of anticoagulants; Z86.16 Personal history of COVID-19; Z85.46 Personal history of malignant neoplasm of prostate
CPT/HCPCS: 36415; 70450; 71045; 73564; 80053; 82077; 82550; 82553; 83605; 84443; 84484; 85025; 85610; 85730; 93005; 93041; 94760; 97161; 97530; 99285; G0378